=== PATIENT | female | born 1950 | race Caucasian/White ===

== ENCOUNTER 2017-02-03 12:27 | Emergency (ER) | payer MEDICARE ==
[~2017-02-03] VITALS: Ht 167.6 cm; Wt 77.1 kg
[2017-02-03 12:58] VITALS: BP 146/80
== END 2017-02-03 16:15 | disposition short-term general hospital (02) ==
LOC: ED 12:27
DX: S02.2XXA Fracture of nasal bones, initial encounter for closed fracture (principal); S42.202A Unspecified fracture of upper end of left humerus, initial encounter for closed fracture; S09.90XA Unspecified injury of head, initial encounter; R22.0 Localized swelling, mass and lump, head; W18.39XA Other fall on same level, initial encounter; Y93.01 Activity, walking, marching and hiking; Y92.89 Other specified places as the place of occurrence of the external cause; Y99.9 Unspecified external cause status

== ENCOUNTER → 2017-04-16 | Outpatient (CLI) | payer MEDICARE ==
[2017-04-16 13:21] LABS: BUN 19 mg/dl (7-24); CARBON DIOXIDE 30 mmol/L (21-32); CHLORIDE 100 mmol/L (98-107); EST GLOM FILT AFRICAN AMERICAN > 60 ml/min; GLUCOSE 105 mg/dL (65-99); POTASSIUM 3.8 mmol/L (3.5-5.1); SODIUM 139 mmol/L (136-145)
== END | disposition home or self-care (01) ==
LOC: LAB 12:37
PROVIDERS: Internal Medicine
DX: I10 Essential (primary) hypertension (principal)

== ENCOUNTER → 2017-09-03 | Outpatient (CLI) | payer MEDICARE | END | disposition home or self-care (01) | LOC: MAMMO 01:12 | DX: Z12.31 Encounter for screening mammogram for malignant neoplasm of breast (principal); Z13.820 Encounter for screening for osteoporosis; Z78.0 Asymptomatic menopausal state ==

== ENCOUNTER → 2018-02-02 | Outpatient (CLI) | payer MEDICARE ==
[2018-02-02 12:00] LABS: BASO % 0.4 % (0.0-1.0); EOS # 0.1 10*3/uL (0.0-0.4); EOS % 0.9 % (1.0-4.0); HEMATOCRIT 32.3 % (37.0-47.0); HEMOGLOBIN 10.3 g/dl (12.0-16.0); LYMPH # 1.8 10*3/uL (1.3-4.4); LYMPH % 33.8 % (27.0-41.0); MEAN CORPUSCULAR HGB 28.4 pg (27.0-31.0); MEAN CORPUSCULAR HGB CONC 31.9 g/dl (33.0-37.0); MEAN PLATELET VOLUME 10.2 fl (9.6-12.3); MONO # 0.5 10*3/uL (0.1-1.0); MONO % 8.5 % (3.0-9.0); PLATELET COUNT AUTOMATED 241 10*3/uL (130-400); RED BLOOD COUNT 3.63 10*6/uL (4.10-5.10); RED CELL DISTRI WIDTH 13.7 % (0-14.5); WHITE BLOOD COUNT 5.3 10*3/uL (4.8-10.8)
[2018-02-02 12:18] LABS: ALBUMIN 3.9 gm/dl (3.1-4.5); ALKALINE PHOSPHATASE 79 U/L (45-117); BUN 16 mg/dl (7-24); CHLORIDE 101 mmol/L (98-107); CREATININE 0.89 mg/dL (0.55-1.02); POTASSIUM 4.3 mmol/L (3.5-5.1); SGOT/AST 11 IU/L (3-35); SGPT/ALT 15 U/L (12-78); SODIUM 139 mmol/L (136-145); TOTAL PROTEIN 6.8 gm/dL (6.4-8.2)
== END | disposition home or self-care (01) ==
LOC: LAB 11:26
PROVIDERS: Internal Medicine
DX: I10 Essential (primary) hypertension (principal)

== ENCOUNTER → 2018-10-29 | Day surgery (SDC) | payer MEDICARE ==
[~2018-10-29] VITALS: Ht 165.1 cm; Wt 62.6 kg
[~2018-10-29] MED LIST: ALENDRONATE SOD70 M1 PO; FEROSUL325 MG PO; LISINOPRIL20 MG PO; OYSCO 500-VIT1 EACH PO; VITAMIN B121000 MC1 PO
--- NOTE | ~2018-10-29 | PROC NOTE ---
[place], [place] PROCEDURE NOTE NAME: KENNEDI HALL UNIT #: [id number] ROOM: DOCTOR: GARRY RALPH MD BIRTHDATE: [birth year] DOS: 10/29/2018 PREOPERATIVE DIAGNOSIS: Screening examination. POSTOPERATIVE DIAGNOSIS: Screening examination. PROCEDURE: Colonoscopy (incomplete, up to 95 cm from the anal verge). ENDOSCOPIST: Garry Ralph MD TRUCK SERVICE MANAGER: RYAN. ANESTHESIA: MAC. INDICATIONS: This is a 68-year-old lady who is here for a screening examination. The procedure and its complications were explained to the patient in detail preoperatively. Complications that were discussed included but were not limited to, bleeding, colon perforation and missed lesions. She agreed to proceed. DESCRIPTION OF PROCEDURE: After identifying the patient, the patient was brought to the endoscopy suite and placed in the left lateral position. After time-out procedure was called, IV sedation was administered by the Anesthesia Team. A digital rectal exam was performed, which was within normal limits. An adult colonoscope was now introduced into the anal canal and advanced sequentially into the rectum, sigmoid colon, descending colon and transverse colon up to the mid transverse colon approximately 95 cm from the anal verge. Despite multiple attempts and changing the patient's positions, the scope could not be passed beyond this point, possibly because of adhesions intraabdominally from her previous abdominal surgery and anatomical distortion of the colon. The scope was then carefully withdrawn and the mucosa was visualized. There were no polyps seen. There was no diverticulosis. There were minimal internal hemorrhoids, which were noncomplicated in the rectum, the scope was then withdrawn and the patient was brought back to the recovery in a stable fashion. There were no complications. Dr. Garry Ralph, the attending endoscopist, was present throughout the operating case. Based on these findings, the patient is recommended to have a barium enema examination as an outpatient in the next few weeks, which will be discussed with her in the postoperative phase. These findings were discussed with the patient's family. [place], [place] PROCEDURE NOTE NAME: KENNEDI HALL UNIT #: [id number] ROOM: DOCTOR: GARRY RALPH MD BIRTHDATE: [birth year] Garry Ralph MD CM:GRAYSON:PROCEDURE NOTE [id number] GARRY RALPH MD
[2018-10-29 07:19] VITALS: BP 160/65
[2018-10-29 08:05] VITALS: BP 142/65
[2018-10-29 08:20] VITALS: BP 162/66
[2018-10-29 08:35] VITALS: BP 161/68
== END | disposition home or self-care (01) ==
LOC: SDC 10-26 10:15
DX: Z12.11 Encounter for screening for malignant neoplasm of colon (principal); K64.8 Other hemorrhoids; K63.89 Other specified diseases of intestine; I10 Essential (primary) hypertension; H54.40 Blindness, one eye, unspecified eye; Z91.011 Allergy to milk products; Z98.890 Other specified postprocedural states; Z79.899 Other long term (current) drug therapy; Z90.710 Acquired absence of both cervix and uterus

== ENCOUNTER 2018-11-10 10:54 | Emergency (ER) | payer MEDICARE ==
[~2018-11-10] VITALS: Wt 62.6 kg
== END 2018-11-10 11:56 | disposition home or self-care (01) ==
LOC: ED 10:54
DX: S01.01XA Laceration without foreign body of scalp, initial encounter (principal); Z79.899 Other long term (current) drug therapy; Z91.011 Allergy to milk products; W18.39XA Other fall on same level, initial encounter; Y93.89 Activity, other specified; Y92.89 Other specified places as the place of occurrence of the external cause; Y99.8 Other external cause status

== ENCOUNTER → 2018-11-18 | Outpatient (CLI) | payer MEDICARE | END | disposition home or self-care (01) | LOC: RAD 07:14 | DX: R93.3 Abnormal findings on diagnostic imaging of other parts of digestive tract (principal); Z53.9 Procedure and treatment not carried out, unspecified reason ==

== ENCOUNTER → 2019-01-07 | Outpatient (CLI) | payer MEDICARE | END | disposition home or self-care (01) | LOC: MAMMO 10:02 | DX: Z12.31 Encounter for screening mammogram for malignant neoplasm of breast (principal) ==

== ENCOUNTER → 2020-11-20 | Outpatient (CLI) | payer MEDICARE | END | disposition home or self-care (01) | LOC: RAD 08:48 → MAMMO 09:30 | PROVIDERS: ATTEND Physician Assistant | DX: Z12.31 Encounter for screening mammogram for malignant neoplasm of breast (principal); M81.0 Age-related osteoporosis without current pathological fracture ==

== ENCOUNTER → 2021-12-17 | Outpatient (CLI) | payer MEDICARE | END | disposition home or self-care (01) | LOC: MAMMO 07:34 | PROVIDERS: ATTEND Physician Assistant | DX: Z12.31 Encounter for screening mammogram for malignant neoplasm of breast (principal) ==

== ENCOUNTER → 2022-12-19 | Outpatient (CLI) | payer MEDICARE | END | disposition home or self-care (01) | LOC: MAMMO 09:17 | PROVIDERS: ATTEND Physician Assistant | DX: Z12.31 Encounter for screening mammogram for malignant neoplasm of breast (principal); N64.9 Disorder of breast, unspecified ==

== ENCOUNTER → 2023-12-22 | Outpatient (CLI) | payer MEDICARE ==
[2023-12-22 13:43] LABS: POTASSIUM 4.3 mmol/L (3.4-5.1)
== END | disposition home or self-care (01) ==
LOC: LAB 12:14
PROVIDERS: ATTEND Family Medicine
DX: I10 Essential (primary) hypertension (principal)

== ENCOUNTER 2023-12-27 12:49 | Emergency (ER) | payer MEDICARE ==
[~2023-12-27] VITALS: Ht 167.6 cm; Wt 63.5 kg
[2023-12-27 13:00] VITALS: BP 153/83
[2023-12-27] MEDS ORDERED: HYDROCHLOROTH12.5 M3 PO (14:04)
[2023-12-27] MEDS ORDERED: Ketorolac Tromethamine 60 MG/2 ML VIAL IM ONE (15:00)
[2023-12-27] MEDS ORDERED: MELOXICAM15 MG PO (15:02)
== END 2023-12-27 15:05 | disposition home or self-care (01) ==
LOC: ED 12:49
DX: S93.402A Sprain of unspecified ligament of left ankle, initial encounter (principal); Z79.899 Other long term (current) drug therapy; Z88.8 Allergy status to other drugs, medicaments and biological substances; Z90.711 Acquired absence of uterus with remaining cervical stump; Z98.51 Tubal ligation status; Z98.890 Other specified postprocedural states; W22.01XA Walked into wall, initial encounter; Y93.89 Activity, other specified; Y92.89 Other specified places as the place of occurrence of the external cause; Y99.8 Other external cause status